=== PATIENT | female | born 1960 | race African-American/Black ===

== ENCOUNTER 2024-04-15 12:52 | Emergency (ER) | payer BC, OTHER ==
[~2024-04-15] VITALS: Ht 154.9 cm; Wt 83.0 kg
[2024-04-15 12:55] VITALS: O2SAT 98
[2024-04-15] MEDS ORDERED: METOPROLOL TARTRATE 25MG TABLET PO ONE (13:30)
[2024-04-15] MEDS ORDERED: ENOXAPARIN 80MG/0.8ML SYR SUBCUT ONE (13:30)
[2024-04-15] MEDS ORDERED: ASPIRIN 325MG EC TABLET PO ONE (13:30)
[2024-04-15] MEDS ORDERED: MORPHINE SULFATE 4 MG/ML INJ (FOR IV/IM USE) IV ONE (13:30)
[2024-04-15] MEDS ORDERED: ONDANSETRON HCL 4MG/2ML INJ IV ONE (13:30)
[2024-04-15 15:15] LABS: CARBON DIOXIDE 30 mEq/L (21-32); CHLORIDE 100 mEq/L (98-107); POTASSIUM 3.6 mEq/L (3.5-5.1); SODIUM 138 mEq/L (136-145)
[2024-04-15 15:16] LABS: CALCIUM 9.9 mg/dL (8.7-10.4)
[2024-04-15 15:21] LABS: CREATININE 0.6 mg/dL (0.6-1.0); GLUCOSE 98 mg/dL (70-105); UREA NITROGEN BLOOD 12 mg/dL (9-23)
[2024-04-15 15:29] LABS: TROPONIN I HIGH SENSITIVITY < 4 ng/L (3.0-34)
[2024-04-15 15:32] LABS: BASOPHILS % 0.6 % (0.0-2.0); EOSINOPHILS % 2.6 % (0.0-5.0); HEMATOCRIT. 41.2 % (36.0-48.0); HEMOGLOBIN. 13.5 g/dL (12.0-16.0); LYMPHOCYTES % 14.8 % (20.0-50.0); MEAN CORPUSCULAR HEMOGLOBIN 31.1 pg (28.0-32.0); MEAN CORPUSCULAR HGB CONC 32.8 g/dL (31.0-37.0); MEAN CORPUSCULAR VOLUME 94.6 fL (81.0-99.0); MEAN PLATELET VOLUME 8.5 fl (7.4-10.4); PLATELET 278 x1000/uL (130-400); RED BLOOD CELL COUNT 4.36 mill/uL (4.2-5.4); RED CELL DISTRIBUTION WIDTH 13.8 % (11.6-14.6); WHITE BLOOD COUNT 9.3 x1000/uL (4.5-11.0)
[2024-04-15] MEDS: ONDANSETRON HCL 4MG/2ML INJ IV NR (17:50)
[2024-04-15] MEDS: ENOXAPARIN 80MG/0.8ML SYR SUBCUT NR (17:50)
[2024-04-15] MEDS: ASPIRIN 325MG EC TABLET PO NR (17:50)
[2024-04-15] MEDS: METOPROLOL TARTRATE 25MG TABLET PO NR (17:50)
[2024-04-15] MEDS: MORPHINE SULFATE 4 MG/ML INJ (FOR IV/IM USE) IV NR (17:51)
[2024-04-15 20:48] LABS: TROPONIN I HIGH SENSITIVITY < 4 ng/L (3.0-34)
[2024-04-15 21:54] LABS: TROPONIN I HIGH SENSITIVITY < 4 ng/L (3.0-34)
[2024-04-15 22:14] VITALS: BP 109/43; PULSE 66; RESP 17; TEMP 37.11408; O2SAT 95
== END 2024-04-15 22:23 | disposition short-term general hospital (02) ==
LOC: ER 14:20
DX: I20.0 Unstable angina (principal); E78.00 Pure hypercholesterolemia, unspecified; I10 Essential (primary) hypertension; Z98.890 Other specified postprocedural states
CPT/HCPCS: 99291; 96374; 71045; 96375; 80048; 83880; 85025; 84484; 93005; 96372; 36415; J1650; J2405; J2270